=== PATIENT | male | born 1995 | race Caucasian/White ===

== ENCOUNTER 2022-02-24 10:36 | Emergency (ER) | payer OTHER ==
[2022-02-24 10:49] VITALS: BP 149/72
--- NOTE | 2022-02-24 11:14 | XRAY Report ---
PROCEDURE: Ribs w/PA Chest LT INDICATIONS: short of air TECHNIQUE: 3 views of the left ribs were acquired, along with a single view chest. COMPARISON: None FINDINGS: Surgical changes and devices: None. Bones and chest wall: A marker is placed upon the area of pain. At this site, no fractures are seen. No fractures or dislocations are seen elsewhere. No suspicious bony lesions. The overlying soft ti ssues appear unremarkable. Lungs and pleura: No pleural effusions or pneumothorax. Lungs appear clear. Mediastinum: Mediastinal contours appear normal. Heart size is normal. IMPRESSION: No displaced rib fractures are seen. No pneumothorax. Reviewed by: Bob Giron MD on 02/24/2022 10:13 AM AYSHA Approved by: Bob Giron MD on 02/24/2022 10:13 AM AYSHA Station ID: [id number]
[2022-02-24] MEDS ORDERED: IBUPROFEN 600 MG TABLET PO STA (11:58)
[2022-02-24] MEDS ORDERED: ACETAMINOPHEN 325 MG TABLET PO STA (11:58)
--- NOTE | 2022-02-24 12:06 | ED Physician Documentation ---
PD HPI Fall - Stated complaint Stated Complaint: LT SIDE RIB PX - Chief complaint Chief Complaint: Trauma Ch/Bk - History obtained from History obtained from: Patient - History of Present Illness Mechanism of injury: Other (fell skiing 10 days ago at [place] with pain to left lateral chest. Has persisted despite Naproxen, and has worsened the past 4 days.) Fall distance: Other (during skiing, so standing position but with movement.) Where injury occurred: Other ([place] [employer] [place] Timing - onset: How many days ago (10) Injury(ies) location: Chest (left lateral chestwall.) Quality of pain: Pain, Sharp Associated symptoms: Dyspnea (hurts for breathing). No: Weakness, Paresthesias Worsens with: Movement, Palpation Similar symptoms before: Has not had sx before Recently seen: Not recently seen Review of Systems Constitutional: denies: Fever, Chills Nose: denies: Rhinorrhea / runny nose, Congestion Throat: denies: Sore throat Cardiac: reports: Chest pain / pressure (left lateral) Respiratory: reports: Dyspnea. denies: Cough PD PAST MEDICAL HISTORY - Past Medical History Cardiovascular: None Respiratory: None Endocrine/Autoimmune: None - Present Medications Home Medications: Ambulatory Orders Medication Instructions Recorded Confirmed HYDROcod/ACETAM 5/325 [[place] 5/325] 1 ea PO Q6H PRN #15 tablet 02/24/22 Meloxicam [Mobic] 7.5 mg PO BID 10 Days #20 tablet 02/24/22 tiZANidine [Zanaflex] 4 mg PO Q8H PRN #25 tablet 02/24/22 - Allergies Allergies/Adverse Reactions: Allergies Allergy/AdvReac Type Severity Reaction Status Date / Time No Known Drug Allergies Allergy Verified 02/24/22 10:47 PD ED PE NORMAL - Vitals Vital signs reviewed: Yes - General General: Alert and oriented X 3, No acute distress, Well developed/nourished - Cardiac Cardiac: RRR, No murmur - Respiratory Respiratory: No respiratory distress, Clear bilaterally, Other (left lateral chest at approx ribs 6-8 with tenderness but no deformity nor crepitance. ) - Abdomen Abdomen: Soft, Non tender - Derm Derm: Normal color, Warm and dry, No rash Results - Vitals Vitals: Vital Signs - 24 hr 02/24/22 10:47 Temperature 37.0 C Heart Rate 78 Respiratory 19 Rate Blood Pressure 149/72 H O2 Saturation 100 Oxygen O2 Source Room air - Rads (name of study) ribs with chest xray Radiology: Prelim report reviewed (no rib fractures nor PTX.), See rad report PD MEDICAL DECISION MAKING - ED course Complexity details: reviewed results, considered differential, d/w patient Departure - Departure Disposition: 01 Home, Self Care Clinical Impression: Chest wall contusion Qualifiers: Encounter type: initial encounter Laterality: left Qualified Code(s): S20.212A - Contusion of left front wall of thorax, initial encounter Condition: Stable Record reviewed to determine appropriate education?: Yes Instructions: ED Contusion Chest Wall Follow-Up: YASMEEN Rivers [Provider Group] Prescriptions: Meloxicam [Mobic] 7.5 mg PO BID 10 Days #20 tablet HYDROcod/ACETAM 5/325 [[place] 5/325] 1 ea PO Q6H PRN #15 tablet PRN Reason: Pain tiZANidine [Zanaflex] 4 mg PO Q8H PRN #25 tablet PRN Reason: Spasms Comments: Your x-ray is normal without any signs of rib fractures nor pneumothorax. Potentially could have a hairline nondisplaced fracture of the rib not visible on x-ray though fairly uncommon. At this point would presume persistent bruising of the muscles and strain of it. Switch to a different anti-inflammatory and also add muscle relaxant. To that add Tylenol every 4-6 hours if needed for pain or hydrocodone if needed for w orse pain. I would anticipate improvement with this over the next several days or so. Off work tonight. I transmitted your prescription to [facility] in [place]. My narcotic instructionsI am prescribing a short course of narcotic pain medication for you. These are potentially dangerous and addictive medications that should be used carefully. These medications may constipate you. Take an [id number] stool softener such as docusate twice daily with plenty of water while taking these medications. If you go 24 hours without a bowel movement, take [id number] MiraLAX, per package instructions. Do not drink or drive while taking these medications. If you received narcotic or sedating medications while in the emergency department do not drive for 24 hours. Store this medication in a safe, secure place and out of reach of children. It is a violation of federal law to give or sell this medication to another person or to use in a manner other than prescribed. The ED will not refill narcotic prescriptions, including prescriptions lost or stolen. You can dispose of unwanted medications at the [facility]'s office or at several pharmacies such as [facility]. Forms: Activity restrictions Discharge Date/Time: 02/24/22 12:18
== END 2022-02-24 12:18 | disposition home or self-care (01) ==
LOC: ED 10:36
DX: S20.212A Contusion of left front wall of thorax, initial encounter (principal); W19.XXXA Unspecified fall, initial encounter; Y93.23 Activity, snow (alpine) (downhill) skiing, snowboarding, sledding, tobogganing and snow tubing; Y92.838 Other recreation area as the place of occurrence of the external cause
CPT/HCPCS: 71101; 99283; A9270

== ENCOUNTER 2022-12-21 08:05 | Emergency (ER) | payer OTHER ==
--- NOTE | 2022-12-21 08:43 | XRAY Report ---
PROCEDURE: Shoulder 3 View LT INDICATIONS: trauma TECHNIQUE: 3 views of the shoulder were acquired. COMPARISON: CXR 02/24/2022. FINDINGS: Bones: No fractures or dislocations. Question of superior subluxation of the distal clavicle in rel ation to the acromion. No suspicious bony lesions. Visualized ribs appear intact. Soft tissues: No suspicious soft tissue calcifications. IMPRESSION: Question superior subluxation of the distal clavicle in relation to the acromion. This could be seen in AC joint ligamentous injury. Dedicated clavicle radiographs with comparison to the contralateral side could be performed for furth er evaluation. No fracture. Reviewed by: Ilia Benitze MD on 12/21/2022 8:42 AM PST Approved by: Ilia Benitez MD on 12/21/2022 8:42 AM PST Station ID: [id number]
--- NOTE | 2022-12-21 09:02 | ED Physician Documentation ---
PD HPI UPPER EXT INJURY - Stated complaint Stated Complaint: SHOULDER INJ - Chief complaint Chief Complaint: Trauma Ext - History obtained from History obtained from: Patient - History of Present Illness Location: Left, Shoulder Type of injury: Fall, Blunt / blow [place] occurred[place] Timing - onset: Yesterday Timing - duration: Days (1) Timing - details: Abrupt onset Improved by: Rest, Ice, Immobilization Worsened by: Moving, Palpating Associated symptoms: Swelling. 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 He was helmeted and he indicates that he was not otherwise injured. He was able to ski down the rest of the way and he was able to drive himself back home. He states that he has pain in his right shoulder is not able to move his shoulder around and was not even able to get dressed this morning. He had a rough night last night even though he took some Aleve and he did not get significant pain relief. He denies a head strike and he denies pain in his neck chest or spine. Review of Systems Constitutional: denies: Fever Ears: denies: Ear pain Nose: denies: Congestion Throat: denies: Sore throat Cardiac: denies: Chest pain / pressure Respiratory: denies: Dyspnea, Cough GI: denies: Abdominal Pain, Nausea, Vomiting Musculoskeletal: reports: Extremity pain, Joint pain. denies: Neck pain, Back pain Neurologic: denies: Generalized weakness, Focal weakness, Numbness PD PAST MEDICAL HISTORY - Past Medical History Past Medical History: No Cardiovascular: None Respiratory: None Neuro: None Endocrine/Autoimmune: None GI: None : None HEENT: None Psych: None Musculoskeletal: None Derm: None - Past Surgical History Past Surgical History: No - Present Medications Home Medications: Ambulatory Orders Medication Instructions Recorded Confirmed HYDROcod/ACETAM 5/325 [[place] 5/325] 1 - 2 tablet PO Q6H PRN #14 tablet 12/21/22 - Allergies Allergies/Adverse Reactions: Allergies Allergy/AdvReac Type Severity Reaction Status Date / Time No Known Drug Allergies Allergy Verified 12/21/22 08:12 - Social History Does the pt smoke?: No Smoking Status: Never smoker Does the pt drink ETOH?: Yes Does the pt have substance abuse?: No - Immunizations Immunizations are current?: Yes PD ED PE NORMAL - Vitals Vital signs reviewed: Yes (hypertensive ) - General General: Alert and oriented X 3, No acute distress, Well developed/nourished - HEENT HEENT: Atraumatic, PERRL, EOMI - Neck Neck: Supple, no meningeal sign, No bony TTP - Respiratory Respiratory: No respiratory distress - Back Back: No CVA TTP, No spinal TTP - Derm Derm: Normal color, Warm and dry, No rash - Extremities Extremities: No edema, Other (The left shoulder has the typical step off of an A/C separtion and point tenderness over the A/C joint. ) - Neuro Neuro: Alert and oriented X 3, manager developmental 2-12 intact, No motor deficit, No sensory deficit, Normal speech Eye Opening: Spontaneous Motor: Obeys Commands Verbal: Oriented GCS Score: 15 - Psych Psych: Normal mood, Normal affect Results - Vitals Vitals: Vital Signs - 24 hr 12/21/22 12/21/22 08:10 09:20 Temperature 36.6 C Heart Rate 95 79 Respiratory 20 16 Rate Blood Pressure 162/84 H 148/88 H O2 Saturation 98 97 Oxygen O2 Source Room air - Rads (name of study) left shoulder Radiology: Prelim report reviewed (Impression: Question superior subluxation of the distal clavicle in relation to the acromion. This could be seen in a seated joint ligamentous injury. Dedicated clavicle radiographs with comparison to the contralateral side could be performed for further evaluation. No fracture.), EMP read indepedently, See rad report PD Medical Decision Making - ED course Complexity details: considered differential, d/w patient ED course: 27-year-old male who struck a tree while skiing yesterday appears to have injured his left shoulder with an AC separation. He is placed into a sling here in the emergency department for pain control and is given an ice bag. He was examined for further injury related to this incident and does not appear to be injured otherwise. I have instructed the patient on the typical natural history of AC separation and the need to perform range of motion exercises with the shoulder. We will provide some pain medication for temporary relief. Departure - Departure Disposition: 01 Home, Self Care Clinical Impression: Acromioclavicular joint separation Qualifiers: Encounter type: initial encounter Laterality: left Qualified Code(s): S43.102A - Unspecified dislocation of left acromioclavicular joint, initial encounter Condition: Stable Instructions: Treatment for Shoulder Separation, ED Sprain AC Joint Follow-Up: SONNY DUQUE DO [Primary Care Provider] - Prescriptions: HYDROcod/ACETAM 5/325 [[place] 5/325] 1 - 2 tablet PO Q6H PRN #14 tablet PRN Reason: Pain Comments: Zhang, today it looks like you have a shoulder separation which will heal by scarring. Use the sling for comfort and make certain to take your arm out of the sling at least 3-4 times per day to do range of motion exercises as discussed. I have provided some narcotic pain reliever for temporary pain relief. This has been E scrib[facility] to the [facility] in [place]. This injury will eventually heal completely but you may have some difficulty with pain turning over in bed for several months. Full recovery will take some physical therapy to improve shoulder musculature. Discharge Date/Time: 12/21/22 09:20
[2022-12-21 09:21] VITALS: BP 148/88
== END 2022-12-21 09:20 | disposition home or self-care (01) ==
LOC: ED 08:05
DX: S43.102A Unspecified dislocation of left acromioclavicular joint, initial encounter (principal); W22.09XA Striking against other stationary object, initial encounter; Y93.23 Activity, snow (alpine) (downhill) skiing, snowboarding, sledding, tobogganing and snow tubing; Y92.830 Public park as the place of occurrence of the external cause
CPT/HCPCS: 99283